=== PATIENT | male | born 1955 | race African-American/Black ===

== ENCOUNTER 2025-06-02 18:38 | Emergency (ER) | payer BC, OTHER ==
[~2025-06-02 18:38] MED LIST: Iopamidol 300 61% 100 ML VIAL FS ONE
[2025-06-02] MEDS ORDERED: HYDROmorphone 0.5 MG/0.5 ML SYRINGE ONE (19:46)
[2025-06-02 20:10] LABS: #Basophils 0.04 10x3/uL (0.0-0.2); #Eosinophils 0.25 10x3/uL (0.0-0.5); #Monocytes 0.56 10x3/uL (0.0-1.1); #Neutrophils 1.97 10x3/uL (1.5-8.4); %Basophils 0.9 % (0.0-2.0); %Eosinophils 5.3 % (0.0-6.0); %Lymphocytes 39.8 % (18.0-47.0); %Monocytes 11.9 % (0.0-10.0); %Neutrophils 41.9 % (40.0-75.0); Hematocrit 37.2 % (38.8-50.0); Hemoglobin 12.2 g/dL (13.5-17.5); Mean Corpuscular Hemoglobin 26.8 pg (27.0-33.0); Mean Corpuscular Volume 81.8 fL (81.2-95.1); Platelet Count 270 10x3/uL (150-450); Red Blood Cell (RBC) Count 4.55 10x6/uL (4.32-5.72); White Blood Cell (WBC) Count 4.70 10x3/uL (3.5-10.5)
[2025-06-02 20:37] LABS: ALT (SGPT) 13 U/L (Less than 45); AST (SGOT) 22 U/L (11-34); Albumin 4.0 g/dL (3.1-4.5); Alkaline Phosphatase 53 U/L (40-110); Anion Gap 15 mmol/L (10-20); BUN (Urea Nitrogen) 9 mg/dL (8.4-25.7); Bilirubin, Total 0.4 mg/dL (0.3-1.2); Calc. Creatinine Clearance 0 mL/min (70-130); Calcium 8.8 mg/dL (7.8-10.44); Carbon Dioxide 27 mmol/L (23-31); Chloride 101 mmol/L (98-107); Globulin 2.8 g/dL (2.4-3.5); Glucose 135 mg/dL (80-115); Lipase 33 U/L (8-78); Potassium 3.2 mmol/L (3.5-5.1); Sodium 140 mmol/L (136-145)
== END 2025-06-02 21:55 | disposition home or self-care (01) ==
LOC: CSHERS 18:38
DX: K62.5 Hemorrhage of anus and rectum (principal); I10 Essential (primary) hypertension; E11.9 Type 2 diabetes mellitus without complications; M54.9 Dorsalgia, unspecified; G89.29 Other chronic pain; Z95.5 Presence of coronary angioplasty implant and graft; Z55.6 Problems related to health literacy; Z86.79 Personal history of other diseases of the circulatory system
CPT/HCPCS: 74177; 80053; 83690; 85025; 96374; J1171; Q9967